=== PATIENT | female | born 1965 | race Caucasian/White ===

== ENCOUNTER 2021-12-14 19:16 | Emergency (ER) | payer OTHER ==
[~2021-12-14] VITALS: Ht 142.2 cm; Wt 93.0 kg
[2021-12-14 20:52] VITALS: BP 110/76
== END 2021-12-15 01:00 | disposition left against medical advice (07) ==
LOC: ER 19:16
DX: Z53.21 Procedure and treatment not carried out due to patient leaving prior to being seen by health care provider (principal)